=== PATIENT | female | born 1985 | race Two or more races ===

== ENCOUNTER 2021-10-30 11:59 | Outpatient (REF) | payer OTHER, SELFPAY | END 2021-10-30 12:00 | disposition home or self-care (01) | LOC: HO.LAB 11:59 | PROVIDERS: Visit Provider Internal Medicine | DX: Z20.822 Contact with and (suspected) exposure to COVID-19 (principal) | CPT/HCPCS: C9803; U0003; U0005 ==

== ENCOUNTER 2022-05-12 07:53 | Emergency (ER) | payer OTHER, SELFPAY ==
--- NOTE | ~2022-05-12 | XR_ITS ---
EXAMINATION: XR LUMBOSACRAL SPINE CLINICAL INFORMATION: Low back pain COMPARISON: None TECHNIQUE: Three views of the lumbosacral spine. FINDINGS: There is normal lumbar lordosis. The vertebral heights and alignment is normal. The disc height is preserved. The SI joints are symmetrical. No visible acute fracture, lytic or sclerotic process seen. There is moderate to large amount of stool in the colon. XR/XR lumbar spine 2-3V IMPRESSION: Unremarkable lumbar spine exam. Large amount of stool in the colon
[2022-05-12 08:04] VITALS: BP 124/84; PULSE 87; RESP 18; TEMP 36.5; O2SAT 98; BMI 42.0
--- NOTE | 2022-05-12 08:49 | ED.BACK ---
HPI - Back Pain/Injury General Chief Complaint: Back Pain/Injury Stated Complaint: back pain Time Seen by Provider: 05/12/22 08:35 Source: patient Mode of arrival: ambulatory Limitations: no limitations History of Present Illness HPI Narrative: This is a 37 years old the female with history of chronic lower back pain presented to emergency room complaining of lower back pain worse since yesterday when she picked up around the child. She denies any radiation of the pain to the lower extremity, she denies any numbness tingling weakness of the lower extremity she denies any fever, she denies also bowel or urine incontinence MD elicited complaint: back pain Pertinent past history: prior back pain Onset (ago): day(s) (1) Timing: constant Severity: moderate Quality: sharp Location: lumbar spine Radiation: none Exacerbating factors: none Relieving factors: none Related Data Previous Rx's Medication Instructions Recorded naproxen 500 mg tablet (Naprosyn) 500 mg PO BID PRN PAIN #20 tabs 05/12/22 oxycodone 5 mg capsule 5 mg PO Q8H PRN pain #12 caps 05/12/22 Allergies Allergy/AdvReac Type Severity Reaction Status Date / Time No Known Allergies Allergy Verified 05/12/22 08:48 Review of Systems Constitutional: Constitutional: Reports no additional constitutional complaints ENT: Reports system reviewed and no additional complaints, except as documented Cardiovascular: Cardiovascular: Reports as per HPI Respiratory: Respiratory: Reports no additional respiratory complaints Genitourinary: Genitourinary: Reports no additional female genitourinary complaints Integumentary/Breasts: Skin/Breast: Reports system reviewed and no additional complaints, except as docu Endocrine: Endocrine: Reports no additional endocrine complaints [facility] Past Medical History [facility] Narrative: back pain Social History Social History Advance Directives: No Advance Directives Information Provided: No Physical Exam Vital Signs: Vital Signs: Last Vital Signs Temp 97.7 F 05/12/22 08:04 Pulse 87 05/12/22 08:04 Resp 18 05/12/22 10:00 BP 124/84 05/12/22 08:04 Pulse Ox 98 05/12/22 08:04 O2 Del Method 05/12/22 08:04 BMI result Body Mass Index 42.0 Const: General: cooperative and comfortable Nutritional Appearance: well nourished Orientation/consciousness: patient oriented x3 Limitations: no limitations HEENT: Head: Yes normal to inspection Face and sinus: Yes normal facial exam Mouth: Normal oral and palatal mucosa present Neck: Neck: Yes normal visual inspection Chest: Chest palpation & inspection: normal inspection of the chest Resp: Effort & Inspection: normal respiratory effort Auscultation: clear to auscultation bilaterally Cardio: Jugular venous distension: no JVD Rate: regular rate Rhythm: regular rhythm GI: Inspection: Yes normal to inspection Auscultation: normal bowel sounds Back/Spine/Pelvis: Other: tenderness LS spine Neuro: General: patient oriented x3, Normal light touch and pain sensation, no focal motor deficits, CN's II-XI intact bilaterally and normal sensation to monofilament Cranial nerves: Yes CN's II-XII intact bilaterally Course Reevaluation(s) Reevaluation #1: feels better ,no neuro deficit,no red flags OK to d/c with outpatient follow up MDM - Back Pain/Injury Imaging Data LS Spine: Radiologist's impression: EXAMINATION: XR LUMBOSACRAL SPINE CLINICAL INFORMATION: Low back pain COMPARISON: None TECHNIQUE: Three views of the lumbosacral spine. FINDINGS: There is normal lumbar lordosis. The vertebral heights and alignment is normal. The disc height is preserved. The SI joints are symmetrical. No visible acute fracture, lytic or sclerotic process seen. There is moderate to large amount of stool in the colon. XR/XR lumbar spine 2-3V IMPRESSION: Unremarkable lumbar spine exam. ? Large amount of stool in the colon Dictated By: Mason Lopez MD Signed By: <Electronically signed by Mason Lopez MD in OV> 05/12/22920 DD/ 09 Discharge Plan Discharge Clinical Impression: Strain of lumbar region Patient Disposition: Home, Self-Care Instructions: Acute Low Back Pain (ED) Additional Instructions: Follow-up with [facility], return if you worse review of numbness or tingling in the lower extremity or weakness in the lower extremity or incontinent of urine or bowel Prescriptions: New oxycodone 5 mg capsule 5 mg PO Q8H PRN (Reason: pain) Qty: 12 0RF Rx Instructions: Partial Fill upon patient request. naproxen [Naprosyn] 500 mg tablet 500 mg PO BID PRN (Reason: PAIN) Qty: 20 0RF Referrals: [facility] [Provider Group] - 3 days Interventions: ED Discharge Assessment Last Done: 05/12/22 10:34 Discharge Date/Time: 05/12/22 10:35
--- NOTE | 2022-05-12 09:02 | PC.NURSE ---
THIS RN IN TO PTS ROOM AFTER STAFF HEARD AN AGGRESSIVE CONVERSATION OCCURRING BETWEEN THE PT AND HER SIGNIFICANT OTHER. HE WAS ASKED TO LEAVE, HE COMPLIED WITHOUT INCIDENT. SECURITY IS AWARE AND PT WAS IN AGREEMENT WITH HIS DEPARTURE. SHE WAS ASKED IF SHE WAS OK ,FELT SAFE, SHE OFFERED NO FURTHER SUBJECTIVE INPUT
[2022-05-12] MEDS: diazePAM 2 MG TABLET 5 MG PO (09:13)
[2022-05-12] MEDS: Ketorolac Tromethamine 60 MG/2 ML VIAL IM (09:14)
[2022-05-12 10:00] VITALS: RESP 18
== END 2022-05-12 10:35 | disposition home or self-care (01) ==
PROVIDERS: Emergency Provider Emergency Medicine
DX: S39.012A Strain of muscle, fascia and tendon of lower back, initial encounter (principal); X50.9XXA Other and unspecified overexertion or strenuous movements or postures, initial encounter; Y93.E9 Activity, other interior property and clothing maintenance; Y92.019 Unspecified place in single-family (private) house as the place of occurrence of the external cause; Y99.9 Unspecified external cause status
CPT/HCPCS: 72100; 96372; 99283; 99284; J1885

== ENCOUNTER 2022-10-03 10:32 | Outpatient (REF) | payer OTHER, SELFPAY ==
--- NOTE | ~2022-10-03 | XR_ITS ---
EXAMINATION: XR CHEST CLINICAL INFORMATION: Morbid/severe obesity due to excess calories COMPARISON: None TECHNIQUE: 2 views of the chest were obtained. FINDINGS: No significant abnormality is noted involving the heart, lungs, mediastinum, bony thorax or soft tissues. XR/XR chest 2V IMPRESSION: Unremarkable chest examination.
--- NOTE | 2022-10-03 10:38 | ECG_ITS ---
Test Reason : E66.91 MORBID OBESITY Blood Pressure : / mmHG Vent. Rate : 068 BPM Atrial Rate : 068 BPM P-R Int : 144 ms QRS Dur : 082 ms QT Int : 392 ms P-R-T Axes : 046 016 020 degrees QTc Int : 416 ms Normal sinus rhythm Cannot rule out Anterior infarct , age undetermined Abnormal ECG No previous ECGs available Referred By: Chema Smith Electronically Signed By:Gurmeet Norman
[2022-10-03 10:57] LABS: MANUAL DIFF FLAG NO
[2022-10-03 11:47] LABS: Basophils Percent Auto 0.7 % (0-2); Eosinophils Absolute Auto 0.1 X10*3/uL (0.0-0.4); Eosinophils Percent Auto 1.7 % (0-4); Hematocrit 32.2 % (37.0-47.0); Hemoglobin 9.5 g/dl (12.0-16.0); Imm Gran Abs Auto 0.02 X10*3/uL (0.00-0.03); Imm Gran Pct Auto 0.3 % (0.0-0.4); Lymphocytes Absolute Auto 1.7 X10*3/uL (1.2-4.9); Lymphocytes Percent Auto 28.5 % (20-40); Mean Corpuscular HGB Conc 29.5 g/dl (31.0-35.0); Mean Corpuscular Hemoglobin 20.8 pg (27.0-33.0); Mean Corpuscular Volume 70.5 fL (80.0-98.0); Mean Platelet Volume 9.9 fL (9.4-12.3); Monocytes Absolute Auto 0.5 X10*3/uL (0.1-1.2); Monocytes Percent Auto 8.5 % (2-11); Neutrophils Absolute Auto 3.5 x10*3/uL (2.0-8.3); Neutrophils Percent Auto 60.3 % (45-73); Platelet Count 290 X10*3/uL (160-400); Red Blood Count 4.57 X10*6/uL (4.20-5.50); Red Cell Distribution Width 16.9 % (11.0-16.0); White Blood Count 5.8 X10*3/uL (4.8-10.8)
[2022-10-03 12:16] LABS: Estimated Average Glucose 105 mg/dL; Hemoglobin A1c % 5.3 %
[2022-10-03 12:42] LABS: Alanine Aminotransferase 13 U/L (0-31); Alkaline Phosphatase 117 U/L (39-117); Aspartate Amino Transferase 14 U/L (5-31); Bilirubin Total 0.4 mg/dL (0.0-1.0); Blood Urea Nitrogen 9 mg/dL (9-16); C Reactive Protein 0.12 mg/dL (< or = 0.50); Calcium 9.1 mg/dL (8.4-10.2); Cholesterol 166 mg/dL; Estimated Glomerular Filt Rate > 60; Ferritin 5 ng/mL (10-122); Glucose Random 94 mg/dL (60-115); HDL Cholesterol 36 mg/dL; Insulin 20 uU/mL (2-29); Iron 15 mcg/dL (30-160); LDL Cholesterol Calculated 106 mg/dl; Percent Iron Saturation 4 % (15-50); TSH reflex Free T4 1.81 uIU/mL (0.32-4.0); Total Iron Binding Capacity 384 mcg/dL (228-428); Total Protein 6.9 g/dL (6.5-8.0); Triglycerides 123 mg/dL; Unsaturated Iron Binding 369 ug/dL; Vitamin D 25-OH Total 12.8 ng/mL (>30)
[2022-10-03 12:52] LABS: Anion Gap 13 (12-20); Carbon Dioxide 23 mmol/L (22-29); Chloride 106 mmol/L (96-108); Potassium 4.4 mmol/L (3.3-5.1); Sodium 138 mmol/L (135-145)
[2022-10-03 12:54] LABS: Vitamin B12 333 pg/mL (200-900)
[2022-10-06 15:39] LABS: Calcium (PTHI) 9.2 mg/dL (8.6-10.2); PTHI 114 pg/mL (16-77)
[2022-10-08 06:19] LABS: Zinc 86 mcg/dL (60-130)
[2022-10-08 14:53] LABS: Vitamin B1 15 nmol/L (8-30)
[2022-10-08 20:14] LABS: Vitamin A 33 mcg/dL (38-98)
== END 2022-10-03 10:33 | disposition home or self-care (01) ==
LOC: HO.LAB 10:32
PROVIDERS: Visit Provider Surgery
DX: I10 Essential (primary) hypertension (principal); E66.01 Morbid (severe) obesity due to excess calories
CPT/HCPCS: 36415; 71046; 80053; 80061; 82306; 82607; 82728; 82746; 83036; 83525; 83540; 83970; 84425; 84443; 84590; 84630; 85025; 86140; 93005

== ENCOUNTER → 2022-10-09 10:27 | Outpatient (REF) | payer OTHER, SELFPAY ==
--- NOTE | 2022-10-09 10:29 | CA_ITS ---
Acquisition Time: 2022-10-09 10:40:38 Total Exercise Time: 00:06:37 Test Indications: ABN EKG Medications: SEE CHART Protocol: BLOSSOM Max HR: 181 BPM 97% of Pred: 185 BPM Max BP: 186/054 mmHG Max Work Load: 7.9 METS Exercise stress test with exercise 6 min 37 sec of Blossom protocol, achieving 97% MPHR, 7.9 METs, without anginal symptoms, without arrythmia, with normotensive response to exercise, without EKG changes meeting criteria for ischemia. Test reviewed with Dr Reagan Referred By: Chema Smith Overread By: NIKITA LONDON
== END ==
LOC: HO.CARD 10:27
PROVIDERS: Visit Provider Surgery
DX: R94.31 Abnormal electrocardiogram [ECG] [EKG] (principal)
CPT/HCPCS: 93017

== ENCOUNTER → 2022-10-15 08:05 | Outpatient (BNVA) | payer OTHER, SELFPAY | PROVIDERS: Visit Provider Physician Assistant | DX: E66.01 Morbid (severe) obesity due to excess calories (principal); I10 Essential (primary) hypertension; Z11.2 Encounter for screening for other bacterial diseases | CPT/HCPCS: 99211 ==

== ENCOUNTER 2022-10-15 16:17 | Outpatient (REF) | payer OTHER, SELFPAY ==
[2022-10-18 14:13] LABS: H Pylori Breath Test Positive (Negative)
== END 2022-10-15 16:18 | disposition home or self-care (01) ==
LOC: HO.LNP 16:17
PROVIDERS: Visit Provider Surgery
DX: E66.01 Morbid (severe) obesity due to excess calories (principal); I10 Essential (primary) hypertension
CPT/HCPCS: 83013

== ENCOUNTER → 2022-10-24 08:45 | Outpatient (BNVA) | payer OTHER, SELFPAY | PROVIDERS: Visit Provider Dietitian, Registered | DX: E66.01 Morbid (severe) obesity due to excess calories (principal); F33.1 Major depressive disorder, recurrent, moderate; F50.81 Binge eating disorder; F41.1 Generalized anxiety disorder | CPT/HCPCS: 90791; 97802 ==

== ENCOUNTER → 2022-11-06 10:31 | Outpatient (BNVA) | payer OTHER, SELFPAY | PROVIDERS: Visit Provider Counselor Mental Health | DX: F33.1 Major depressive disorder, recurrent, moderate (principal); F50.81 Binge eating disorder; F41.1 Generalized anxiety disorder | CPT/HCPCS: 90834 ==

== ENCOUNTER → 2022-11-08 15:48 | Outpatient (BNVA) | payer OTHER, SELFPAY | PROVIDERS: Visit Provider Dietitian, Registered | DX: E66.01 Morbid (severe) obesity due to excess calories (principal); Z68.41 Body mass index [BMI] 40.0-44.9, adult | CPT/HCPCS: 97803 ==

== ENCOUNTER → 2022-11-13 10:31 | Outpatient (BNVA) | payer OTHER, SELFPAY | PROVIDERS: Visit Provider Counselor Mental Health | DX: F33.1 Major depressive disorder, recurrent, moderate (principal); F50.81 Binge eating disorder; F41.1 Generalized anxiety disorder | CPT/HCPCS: 90834 ==

== ENCOUNTER → 2022-11-20 10:34 | Outpatient (BNVA) | payer OTHER, SELFPAY | PROVIDERS: Visit Provider Counselor Mental Health | DX: F33.1 Major depressive disorder, recurrent, moderate (principal); F50.81 Binge eating disorder; F41.1 Generalized anxiety disorder | CPT/HCPCS: 90834 ==

== ENCOUNTER → 2022-11-21 13:13 | Outpatient (BNVA) | payer OTHER, SELFPAY | PROVIDERS: Visit Provider Dietitian, Registered | DX: F41.8 Other specified anxiety disorders (principal); E66.01 Morbid (severe) obesity due to excess calories; I10 Essential (primary) hypertension | CPT/HCPCS: 97803 ==